=== PATIENT | female | born 1985 | race Hispanic/Latino ===

== ENCOUNTER 2018-05-14 08:57 | Day surgery (SDC) | payer BC ==
[2018-05-01 11:04] VITALS: BMI 21.9
[2018-05-14 09:58] VITALS: RESP 18; O2SAT 100
[2018-05-14] MEDS ORDERED: Midazolam 2 MG/2 ML VIAL ONE (10:02)
[2018-05-14] MEDS ORDERED: Propofol 10 mg/ml Inj (20 ML) ONE (10:02)
[2018-05-14] MEDS ORDERED: Lidocaine 1% 5ml Abboject ONE (10:02)
[2018-05-14] MEDS ORDERED: Lidocaine 2% Jelly (5 ml) TOP ONE (10:03)
[2018-05-14] MEDS ORDERED: Lactated Ringer's 1,000 ML IV ONE (11:29)
[2018-05-14] MEDS ORDERED: Lactated Ringer's 1,000 ML IV SCH (12:15)
--- NOTE | 2018-05-14 12:33 | CP.SDSHP ---
Same Day Surgery H & P - History Proposed Procedure: Hysteroscopic polypectomy Pre-Op Diagnosis: Endometrial polyp - Allergies Allergies: Allergies naproxen Allergy (Verified 05/14/18 09:18) RASH - Current Medications Current Medications: Synthroid - Physical Exam Vital Signs: Vital Signs 05/14/18 05/14/18 05/14/18 09:57 10:01 12:10 Temperature 97.7 F 96.9 F L Pulse Rate 57 L 57 L 67 Respiratory 18 18 Rate Blood Pressure 105/71 123/80 O2 Sat by Pulse 100 100 Oximetry 05/14/18 12:25 Temperature Pulse Rate 56 L Respiratory 18 Rate Blood Pressure 123/80 O2 Sat by Pulse 100 Oximetry Neuro: WNL Heart: WNL Lungs: WNL GI: WNL - {Optional Preform as Required} Breast: WNL Abdomen: WNL Rectal: WNL Integument: WNL CONVEYOR TENDER: WNL : WNL Ortho: WNL ENT: WNL - Impression Impression: Endometrial polyp - proceed with hysteroscopic polypectomy Pt. Evaluated Today:Candidate for Anesthesia & Procedure: Yes Short Stay Discharge - Short Stay Discharge Admitting Diagnosis/Reason for Visit: N84.0 Disposition: HOME/ ROUTINE Follow-up: Follow-up in two weeks with Dr. Hayes Additional Instructions (Diet, Activity): Nothing per vagina x 2 weeks Progress Note/Discharge Note with Instructions: Discharge home
[2018-05-14 13:32] VITALS: TEMP 97.9
[2018-05-14 14:13] VITALS: BP 104/59; PULSE 55
--- NOTE | 2018-05-16 08:44 | OP ---
PROCEDURE DATE: 05/14/2018 PREOPERATIVE DIAGNOSIS: The patient is a 33-year-old female with an endometrial polyp. POSTOPERATIVE DIAGNOSIS: Endometrial polyp. PROCEDURE: Hysteroscopic polypectomy. SURGEON: Rea Hayes MD DIRECTOR REACTOR PROJECTS: None. ANESTHESIOLOGIST: Tung Gonzalez MD TYPE OF ANESTHESIA: LMA. INTRAVENOUS FLUIDS: 600 mL. URINE OUTPUT: None. HYSTEROSCOPIC FLUID: Normal saline, 200 mL. FINDINGS: 1. Anteverted uterus. 2. Bilateral cornual endometrial polyps. 3. Posterior lower uterine segment endometrial polyps. 4. Normal tubal ostia bilaterally. 5. Hemostasis. SPECIMENS: Endometrial polyps. COMPLICATIONS: None. BLOOD LOSS: Less than 10 mL. DESCRIPTION OF PROCEDURE: After proper consent was obtained and all questions were answered, the patient was transferred to operating room #2 at , and adequate general anesthesia with LMA was administered without incident. The patient was placed in modified dorsal lithotomy position using the Colt stirrups in correct position to prevent nerve injury. Exam under anesthesia was performed with findings of a normal anteverted uterus with no adnexal masses. Sterile prep was performed with Betadine and a sterile draping in the usual fashion. Attention was directed to the perineum. A weighted speculum was placed in the posterior fornix of the vagina and turned to the right angle of the fornix. The cervix was visualized and the anterior lip of the cervix was grasped with a single-tooth tenaculum. The cervix was gently dilated using the Kamlesh dilators to accommodate the hysteroscope. Cervix was dilated to #[id number]. The hysteroscope was then prepared with normal saline and advanced into the uterine cavity under direct visualization. The uterine cavity was surveyed. The uterine endometrial contour appeared normal with normal tubal ostia bilaterally. Small subcentimeter polyps were noted. One polyp was noted in the posterior wall of the left cornua, and another sessile endometrial polyp was noted in the anterior wall of the right cornua. Multiple subcentimeter polyps were also noted in the posterior lower uterine segment wall. The hysteroscopic scissors were used to separate the polyps from both the right and left cornual areas from its bases. The hysteroscopic graspers were then used to remove the polyps from the endometrial cavity. This was sent to Pathology. The remaining polyps in the posterior wall of the uterine cavity and lower uterine segment were grasped with the hysteroscopic polyp graspers and then removed from the uterine cavity. The uterus was surveyed once more at the conclusion of the case and noted to be abnormal contour. The remaining anterior and posterior bell appeared normal. The hysteroscope was removed and passed off to the table. The tenaculum site was investigated after the tenaculum was removed. Hemostasis was achieved with pressure with sponge stick. The patient was transferred to the recovery room in good condition and will follow up with Dr. Rea Hayes in two weeks' time. Rea Hayes MD
== END 2018-05-14 14:27 | disposition home or self-care (01) ==
LOC: H.OPSURG 08:57
PROVIDERS: ATTEND Obstetrics & Gynecology Reproductive Endocrinology
DX: N84.0 Polyp of corpus uteri (principal); E03.9 Hypothyroidism, unspecified
CPT/HCPCS: 58558; 88305; J1170; J2250; J2704; J2765; J3010; J7030; J7120